=== PATIENT | male | born 1965 | race Caucasian/White ===

== ENCOUNTER 2019-05-02 17:09 | Emergency (ER) | payer BC ==
[2019-05-02] MEDS ORDERED: Ondansetron 4 MG/2 ML SDV IVPUSH ONE (17:10)
[2019-05-02] MEDS ORDERED: Sodium Chloride 0.9% 1,000 ML IV ONE (17:10)
[2019-05-02] MEDS ORDERED: Sodium Chloride 0.9% 10 ML Syringe FLUSH PRN (17:10)
[2019-05-02] MEDS ORDERED: Sodium Chloride 0.9% 2.5 ML Syringe FLUSH PRN (17:10)
--- NOTE | 2019-05-02 17:15 | EDM.PDOC ---
ED HPI GENERAL MEDICAL PROBLEM - General Chief Complaint: Abdominal Pain Stated Complaint: VOMITTING Time Seen by Provider: 05/02/19 17:09 Source of Information: Reports: Patient History Limitations: Reports: No Limitations - History of Present Illness INITIAL COMMENTS - FREE TEXT/NARRATIVE: HISTORY AND PHYSICAL: History of present illness: Patient is a 53-year-old male presenting to the emergency room with his spouse for chief complaint of vomiting. Patient states that he was seen yesterday at [facility] and had lab work done showing elevated liver function tests and was notified to stop taking his amlodipine and losartan hydrochlorothiazide. Pending hepatitis testing currently at [facility]. He states he was a former injection drug user 30 years ago. He denies alcohol use. Patient states that he has extreme itching and was notified to take ranitidine 150 mg 5 times a day. He states this helps a little bit. He has not taken Benadryl. He stated that he has generalized been not feeling well today. He was nauseated earlier and threw up a couple of times. He denies being nauseated currently. He does state that he has some blurring of vision, a current headache , and a tender stomach upon bending over. Patient denies any fever, chills, syncope or near syncope. Denies any chest pain, back pain, shortness of breath or cough. Denies any abdominal pain, nausea, diarrhea, constipation or dysuria. Has not noted any blood in urine or stool. Patient has been eating and drinking appropriately. Review of systems: As per history of present illness and below otherwise all systems reviewed and negative. Past medical history: As per history of present illness and as reviewed below otherwise noncontributory. Surgical history: As per history of present illness and as reviewed below otherwise noncontributory. Social history: See social history for further information Family history: As per history of present illness and as reviewed below otherwise noncontributory. Physical exam: General: He shouldn't is a well-nourished and well-developed 53-year-old male. Alert and orientated. Nontoxic in appearance and in no acute distress. Vital signs have been reviewed by me. HEENT: Atraumatic, normocephalic, pupils equal and reactive bilaterally, negative for conjunctival pallor, minor scleral icterus noted bilaterally, mucous membranes moist, TMs normal bilaterally, throat clear, neck supple, nontender, trachea midline. No drooling or trismus noted. No meningeal signs. No hot potato voice noted. Lungs: Clear to auscultation, breath sounds equal bilaterally, chest nontender. Heart: S1S2, regular rate and rhythm without overt murmur Abdomen: Soft, nondistended, tender to palpation in the left lower quadrant. Negative for masses or hepatosplenomegaly. Negative for costovertebral tenderness. Skin: Intact, warm, dry. No lesions or rashes noted. Extremities: Atraumatic, moves all extremities per self without difficulty or deficits, negative for cords or calf pain. Neurovascular unremarkable. Neuro: Awake, alert, oriented. Cranial nerves II through XII unremarkable. Cerebellum unremarkable. Motor and sensory unremarkable throughout. Exam nonfocal. Notes: Patient's Total Bili/AST/ALT are elevated. CT of the abdomen and pelvis shows no acute abdominal/pelvic process. Normal-appearing liver. No biliary ductal dilatation. Patient currently has no complaints and states he feels better after receiving the IV fluids. He does have a hepatitis panel pending from his primary care provider. Vital signs are stable. We'll discharge patient to home with close follow-up with his primary care. This case was reviewed with Dr Hoyos. Supportive care measures were reviewed and discussed. Voices understanding and is agreeable to plan of care. Denies any further questions or concerns at this time. Diagnostics: CBC, CMP, Lipase, UA Therapeutics: IV fluids, Zofran Prescription: Zofran Impression: Elevated transaminases Plan: 1. You need follow up on the Hepatitis Panel that you had yesterday. 2. Increase oral fluids. 3. Return to the ED as needed and as discussed Definitive disposition and diagnosis as appropriate pending reevaluation and review of above. Upper Abdomen Pain Score (Numeric/FACES): 3 - Related Data Allergies Allergy/AdvReac Type Severity Reaction Status Date / Time No Known Allergies Allergy Verified 05/02/19 17:24 Home Meds: Home Meds Diclofenac Sodium [Diclofenac Sodium ER] 100 mg PO DAILY 05/02/19 [History] Levothyroxine 25 mcg PO ACBREAKFAST 05/02/19 [History] Losartan/Hydrochlorothiazide [Losartan-HCTZ 100-12.5 MG] 1 tab DAILY 05/02/19 [ History] amLODIPine [Norvasc] 10 mg PO DAILY 05/02/19 [History] ED ROS GENERAL - Review of Systems Review Of Systems: ROS reveals no pertinent complaints other than HPI. ED EXAM, RENAL/ - Physical Exam Exam: See Below (See dictation) Course - Vital Signs Last Recorded V/S: Last Vital Signs Temp 96.6 F 05/02/19 17:19 Pulse 76 05/02/19 17:19 Resp 18 05/02/19 17:19 BP 148/99 H 05/02/19 17: Pulse Ox 95 05/02/19 17:19 - Orders/Labs/Meds Orders: Active Orders 24 hr Category Date Time Status Sodium Chloride 0.9% [Saline Flush] Med 05/02/19 17:10 Active 10 ml FLUSH ASDIRECTED PRN Sodium Chloride 0.9% [Saline Flush] Med 05/02/19 17:10 Active 2.5 ml FLUSH ASDIRECTED PRN Saline Lock Insert [OM.PC] Stat Oth 05/02/19 17:10 Ordered Medication Orders Sodium Chloride (Saline Flush) 10 ml FLUSH ASDIRECTED PRN PRN Reason: Keep Vein Open Last Admin: 05/02/19 17:33 Dose: 10 ml Sodium Chloride (Saline Flush) 2.5 ml FLUSH ASDIRECTED PRN PRN Reason: Keep Vein Open Last Admin: 05/02/19 17:33 Dose: 2.5 ml Labs: Laboratory Tests 05/02/19 05/02/19 05/02/19 Range/Units 17:29 17:29 17:29 WBC 4.72 (4.0-11.0) K/uL RBC 5.06 (4.50-5.90) M/uL Hgb 16.2 (13.0-17.0) g/dL Hct 46.1 (38.0-50.0) % MCV 91.1 (80.0-98.0) fL MCH 32.0 (27.0-32.0) pg MCHC 35.1 (31.0-37.0) g/dL RDW Std Deviation 42.8 (28.0-62.0) fl RDW Coeff of Kassidy 13 (11.0-15.0) % Plt Count 139 L (150-400) K/uL MPV 10.90 (7.40-12.00) fL Add Manual Diff YES Neutrophils % (Manual) 57 (48.0-80.0) % Lymphocytes % (Manual) 29 (16.0-40.0) % Monocytes % (Manual) 7 (0.0-15.0) % Eosinophils % (Manual) 6 (0.0-7.0) % Basophils % (Manual) 1 (0.0-1.5) % Nucleated RBC % 0.0 /100WBC Absolute Seg Neuts 2.7 (1.4-5.7) Lymphocytes # (Manual) 1.4 (0.6-2.4) Monocytes # (Manual) 0.3 (0.0-0.8) Eosinophils # (Manual) 0.3 (0.0-0.7) Basophils # (Manual) 0.0 (0.0-0.1) Nucleated RBCs # 0 K/uL Sodium 137 (136-148) mmol/L Potassium 4.1 (3.5-5.1) mmol/L Chloride 99 (98-107) mmol/L Carbon Dioxide 27.5 (21.0-32.0) mmol/L BUN 16 (7.0-18.0) mg/dL Creatinine 1.3 (0.8-1.3) mg/dL Est Cr Clr Drug Dosing 71.30 mL/min Estimated GFR (MDRD) 57.5 ml/min Glucose 109 H (74-106) mg/dL Calcium 9.5 (8.5-10.1) mg/dL Total Bilirubin 2.6 H (0.2-1.0) mg/dL AST 363 H (15-37) IU/L ALT 420 H (14-63) IU/L Alkaline Phosphatase 151 H (46-116) U/L Total Protein 8.6 H (6.4-8.2) g/dL Albumin 3.7 (3.4-5.0) g/dL Globulin 4.9 H (2.6-4.0) g/dL Albumin/Globulin Ratio 0.8 L (0.9-1.6) Lipase 302 (73-393) U/L Urine Color YELLOW Urine Appearance CLEAR Urine pH 6.0 (5.0-8.0) Ur Specific [place] 1.015 (1.001-1.035) Urine Protein NEGATIVE (NEGATIVE) mg/dL Urine Glucose (UA) NEGATIVE (NEGATIVE) mg/dL Urine Ketones NEGATIVE (NEGATIVE) mg/dL Urine Occult Blood NEGATIVE (NEGATIVE) Urine Nitrite NEGATIVE (NEGATIVE) Urine Bilirubin SMALL H (NEGATIVE) Urine Ictotest NEGATIVE Urine Urobilinogen 1.0 (<2.0) EU/dL Ur Leukocyte Esterase NEGATIVE (NEGATIVE) Meds: Medications Generic Name Dose Route Start Last Admin Trade Name Freq PRN Reason Stop Dose Admin Sodium Chloride 10 ml 05/02/19 17:10 05/02/19 17:33 Saline Flush FLUSH 10 ml ASDIRECTED PRN Administration Keep Vein Open Sodium Chloride 2.5 ml 05/02/19 17:10 05/02/19 17:33 Saline Flush FLUSH 2.5 ml ASDIRECTED PRN Administration Keep Vein Open Discontinued Medications Generic Name Dose Route Start Last Admin Trade Name Freq PRN Reason Stop Dose Admin Sodium Chloride 1,000 mls @ 999 mls/hr 05/02/19 17:10 05/02/19 17:33 Normal Saline IV 05/02/19 18:10 999 mls/hr STAT ONE Administration Iopamidol 80 ml 05/02/19 18:34 05/02/19 18:36 Isovue Multipack-370 (76%) IVPUSH 05/02/19 18:35 80 ml ONETIME STA Administration Ondansetron HCl 4 mg 05/02/19 17:10 05/02/19 17:33 Zofran IVPUSH 05/02/19 17:11 4 mg ONETIME ONE Administration Departure - Departure Time of Disposition: 19:05 Disposition: Home, Self-Care 01 Clinical Impression: Elevated transaminase level - Discharge Information Referrals: Osorio Murray MD [Primary Care Provider] - Forms: ED Department Discharge Additional Instructions: The following information is given to patients seen in the emergency department who are being discharged to home. This information is to outline your options for follow-up care. We provide all patients seen in our emergency department with a follow-up referral. The need for follow-up, as well as the timing and circumstances, are variable depending upon the specifics of your emergency department visit. If you don't have a primary care physician on staff, we will provide you with a referral. We always advise you to contact your personal physician following an emergency department visit to inform them of the circumstance of the visit and for follow-up with them and/or the need for any referrals to a consulting specialist. The emergency department will also refer you to a specialist when appropriate. This referral assures that you have the opportunity for follow-up care with a specialist. All of these measure are taken in an effort to provide you with optimal care, which includes your follow-up. Under all circumstances we always encourage you to contact your private physician who remains a resource for coordinating your care. When calling for follow-up care, please make the office aware that this follow-up is from your recent emergency room visit. If for any reason you are refused follow-up, please contact the [facility] Emergency Department at and asked to speak to the emergency department charge nurse. [facility] [address] [place] [id number] [place] [address] 1. Take Zofran as needed and as prescribed. He may use Benadryl over-the- counter along with your ranitidine for the itching. 2. Please follow-up with your primary care provider regarding your hepatitis panel results. This will direct future care and management. 3. Return to the ED as needed and as discussed. - My Orders Last 24 Hours: My Active Orders 05/02/19 17:10 Sodium Chloride 0.9% [Saline Flush] 10 ml FLUSH ASDIRECTED PRN Sodium Chloride 0.9% [Saline Flush] 2.5 ml FLUSH ASDIRECTED PRN Saline Lock Insert [OM.PC] Stat - Assessment/Plan Last 24 Hours: My Active Orders 05/02/19 17:10 Sodium Chloride 0.9% [Saline Flush] 10 ml FLUSH ASDIRECTED PRN Sodium Chloride 0.9% [Saline Flush] 2.5 ml FLUSH ASDIRECTED PRN Saline Lock Insert [OM.PC] Stat
[2019-05-02 18:01] LABS: CARBON DIOXIDE,CO2 27.5 mmol/L (21.0-32.0); POTASSIUM,K 4.1 mmol/L (3.5-5.1)
[2019-05-02] MEDS ORDERED: Iopamidol 755 MG/ML 200 ML Multipack Bottle IVPUSH STA (18:34)
--- NOTE | 2019-05-02 18:45 | CT ---
INDICATION: Elevated liver function test. TECHNIQUE: Contrast-enhanced CT of the abdomen and pelvis. 80 cc nonionic Isovue-370 administered. FINDINGS: The liver enhances uniformly without masses or biliary duct dilatation. No convincing evidence for hepatic fatty infiltration. Normal-appearing spleen, pancreas, gallbladder, and adrenal glands. Both kidneys are negative for stones, obstruction, or solid masses. Two tiny cortical cysts left kidney. Vascular calcification within a normal caliber abdominal aorta and iliac arteries. Normal inferior vena cava. There is no evidence for small or large bowel obstruction ileus. No ascites or lymphadenopathy. Small esophageal hiatal hernia. Normal urinary bladder, prostate gland, and seminal vesicles. The included skeleton is within normal limits. Mild degenerative facet arthropathy of the lower lumbar spine. IMPRESSION: 1. No acute abdominopelvic process identified. 2. Normal-appearing liver. No biliary ductal dilatation. Please note that all CT scans at this facility use dose modulation, iterative reconstruction, and/or weight-based dosing when appropriate to reduce radiation dose to as low as reasonably achievable. Dictated by Miky Burton MD @ May 02 2019 6:44PM Signed by Dr. Miky Burton @ May 02 2019 6:44PM
== END 2019-05-02 19:26 | disposition home or self-care (01) ==
LOC: MW.ED 17:09
DX: R74.0 Nonspecific elevation of levels of transaminase and lactic acid dehydrogenase [LDH] (principal); R11.2 Nausea with vomiting, unspecified
CPT/HCPCS: 36415; 74177; 80053; 81003; 83690; 85025; 96361; 96374; 99284; J2405; J7040; Q9967

== ENCOUNTER 2020-04-22 04:54 | Emergency (ER) | payer BC, OTHER ==
[2020-04-22] MEDS ORDERED: Morphine 4 MG/ML Syringe IVPUSH ONE ×2 (04:55→05:10)
[2020-04-22] MEDS ORDERED: Ondansetron 4 MG/2 ML SDV IVPUSH ONE (04:55)
[2020-04-22] MEDS ORDERED: Sodium Chloride 0.9% 2.5 ML Syringe FLUSH PRN (04:55)
[2020-04-22] MEDS ORDERED: Aspirin 81 MG Tab.Chew PO ONE (04:55)
[2020-04-22] MEDS ORDERED: Sodium Chloride 0.9% 10 ML Syringe FLUSH PRN (04:55)
[2020-04-22] MEDS ORDERED: Morphine 4 MG/ML Syringe ONE (04:57)
[2020-04-22] MEDS ORDERED: Aspirin 81 MG Tab.Chew ONE (04:57)
[2020-04-22] MEDS ORDERED: Nitroglycerin 0.4 MG Tab.SL SL ONE (04:59)
[2020-04-22] MEDS ORDERED: Nitroglycerin 2% Oint 1 GM UD Packet TOP ONE (05:00)
--- NOTE | 2020-04-22 05:03 | EDM.PDOC ---
ED HPI GENERAL MEDICAL PROBLEM - General Chief Complaint: Chest Pain Stated Complaint: CHEST PAIN Time Seen by Provider: 04/22/20 04:55 - History of Present Illness INITIAL COMMENTS - FREE TEXT/NARRATIVE: Patient is a 54-year-old male with a history of hypertension no prior cardiac disease who had coronavirus and was released from his quarantine 2 days ago who is presenting with 10 out of 10 severe crushing substernal chest pain with radiation to the neck and the left arm that woke him up from sleep 1 hour prior to arrival was associated with lightheadedness nausea and shortness of breath as well as diaphoresis symptoms are constant and severe without exacerbating or alleviating factors no prior history of angina or cardiac disease that he is aware of Left Chest Pain Score (Numeric/FACES): 10 - Related Data Allergies Allergy/AdvReac Type Severity Reaction Status Date / Time No Known Allergies Allergy Verified 05/02/19 17:24 Home Meds: Home Meds Levothyroxine 25 mcg PO ACBREAKFAST 05/02/19 [History] Losartan/Hydrochlorothiazide [Losartan-HCTZ 100-12.5 MG] 1 tab DAILY 05/02/19 [History] amLODIPine [Norvasc] 10 mg PO DAILY 05/02/19 [History] hydroCHLOROthiazide [Hydrochlorothiazide] 12.5 mg PO DAILY 04/22/20 [History] Past Medical History - Past Health History Medical/Surgical History: Denies Medical/Surgical History Cardiovascular History: Reports: Hypertension Musculoskeletal History: Reports: Arthritis Endocrine/Metabolic History: Reports: Hypothyroidism - Past Surgical History HEENT Surgical History: Reports: Tonsillectomy Social & Family History - Family History Family Medical History: Noncontributory ED ROS GENERAL - Review of Systems Review Of Systems: See Below Free Text/Narrative/Comment: General: No fever. Skin: No rash. Eyes: No vision problems. ENT: No sore throat. Neck: No neck stiffness. Respiratory: Per HPI Cardiac: Per HPI Gastrointestinal: No nausea, vomiting or abdominal pain. Urinary: No dysuria. Musculoskeletal: No myalgias/arthralgias. Neurologic: No headache. ED EXAM, GENERAL - Physical Exam Exam: See Below Free Text/Narrative:: General Appearance: Uncomfortable mildly diaphoretic Skin: No rash HEENT: Normocephalic/atraumatic, sclera anicteric, mucous membranes moist Neck: Normal range of motion Chest and Lungs: Bilateral breath sounds, clear to auscultation Cardiovascular: Regular rate and rhythm, no murmur Abdomen: Soft, non-tender Back: Normal Musculoskeletal: No edema or tenderness Neurologic: Awake, alert, no obvious deficits, moving all extremities Psychiatric: Appropriate, cooperative EKG INTERPRETATION EKG Interpretation Comments: EKG #1 obtained at 0453 demonstrates sinus rhythm with a rate of [address] elevation of 1 mm in aVR there is no other ST elevation there is mild ST depression of 1 mm in V4 V5 and V6 as well as will subtle depression in leads I and II that is consistent with ischemia but does not meet STEMI criteria Course - Vital Signs Last Recorded V/S: Last Vital Signs Temp 97.6 F 04/22/20 04:56 Pulse 78 04/22/20 04:56 Resp 20 04/22/20 04:56 BP 150/89 H 04/22/20 05:15 Pulse Ox 96 04/22/20 04:56 - Orders/Labs/Meds Orders: Active Orders 24 hr Category Date Time Status COMPREHENSIVE METABOLIC PN,CMP [CHEM] Stat Lab 04/22/20 05:02 Received MAGNESIUM [CHEM] Stat Lab 04/22/20 05:02 Received TROPONIN I [CHEM] Stat Lab 04/22/20 05:02 Received Nitroglycerin [Nitrostat] Med 04/22/20 05:12 Active 0.4 mg SL Q5M PRN Sodium Chloride 0.9% [Saline Flush] Med 04/22/20 04:55 Active 10 ml FLUSH ASDIRECTED PRN Sodium Chloride 0.9% [Saline Flush] Med 04/22/20 04:55 Active 2.5 ml FLUSH ASDIRECTED PRN Saline Lock Insert [OM.PC] Stat Oth 04/22/20 04:55 Ordered Medication Orders Nitroglycerin (Nitrostat) 0.4 mg SL Q5M PRN PRN Reason: Chest Pain Last Admin: 04/22/20 05:15 Dose: 0.4 mg Documented by: [id number] Admin: 04/22/20 05:10 Dose: 0.4 mg Documented by: [id number] Sodium Chloride (Saline Flush) 10 ml FLUSH ASDIRECTED PRN PRN Reason: Keep Vein Open Sodium Chloride (Saline Flush) 2.5 ml FLUSH ASDIRECTED PRN PRN Reason: Keep Vein Open Labs: Laboratory Tests 04/22/20 Range/Units 05:02 WBC 6.50 (4.0-11.0) K/uL RBC 5.18 (4.50-5.90) M/uL Hgb 15.5 (13.0-17.0) g/dL Hct 46.5 (38.0-50.0) % MCV 89.8 (80.0-98.0) fL MCH 29.9 (27.0-32.0) pg MCHC 33.3 (31.0-37.0) g/dL RDW Std Deviation 41.7 (28.0-62.0) fl RDW Coeff of Kassidy 13 (11.0-15.0) % Plt Count 172 (150-400) K/uL MPV 10.20 (7.40-12.00) fL Neut % (Auto) 39.0 L (48.0-80.0) % Lymph % (Auto) 42.0 H (16.0-40.0) % [place] % (Auto) 15.8 H (0.0-15.0) % Eos % (Auto) 2.9 (0.0-7.0) % Baso % (Auto) 0.3 (0.0-1.5) % Neut # (Auto) 2.5 (1.4-5.7) K/uL Lymph # (Auto) 2.7 H (0.6-2.4) K/uL [place] # (Auto) 1.0 H (0.0-0.8) K/uL Eos # (Auto) 0.2 (0.0-0.7) K/uL Baso # (Auto) 0.0 (0.0-0.1) K/uL Nucleated RBC % 0.0 /100WBC Nucleated RBCs # 0 K/uL Meds: Medications Generic Name Dose Route Start Last Admin Trade Name Freq PRN Reason Stop Dose Admin Nitroglycerin 0.4 mg 04/22/20 05:12 04/22/20 05:15 Nitrostat SL 0.4 mg Q5M PRN Administration Chest Pain Sodium Chloride 10 ml 04/22/20 04:55 Saline Flush FLUSH ASDIRECTED PRN Keep Vein Open Sodium Chloride 2.5 ml 04/22/20 04:55 Saline Flush FLUSH ASDIRECTED PRN Keep Vein Open Discontinued Medications Generic Name Dose Route Start Last Admin Trade Name Shantanuq PRN Reason Stop Dose Admin Aspirin 324 mg 04/22/20 04:55 04/22/20 05:07 Aspirin PO 04/22/20 04:56 324 mg ONETIME ONE Administration Aspirin Confirm 04/22/20 04:57 04/22/20 05:07 Aspirin Administered 04/22/20 04:58 Not Given Dose 324 mg .ROUTE .STK-MED ONE Morphine Sulfate 4 mg 04/22/20 04:55 04/22/20 05:06 Morphine IVPUSH 04/22/20 04:56 4 mg ONETIME ONE Administration Morphine Sulfate Confirm 04/22/20 04:57 04/22/20 05:07 Morphine Administered 04/22/20 04:58 Not Given Dose 4 mg .ROUTE .STK-MED ONE Morphine Sulfate 4 mg 04/22/20 05:10 04/22/20 05:14 Morphine IVPUSH 04/22/20 05:11 4 mg ONETIME ONE Administration Morphine Sulfate 8 mg 04/22/20 05:27 Morphine IVPUSH 04/22/20 05:28 ONETIME ONE Nitroglycerin 0.4 mg 04/22/20 04:59 04/22/20 05:05 Nitrostat SL 04/22/20 05:00 0.4 mg ONETIME ONE Administration Nitroglycerin 1 gm 04/22/20 05:00 04/22/20 05:06 Nitro-Bid 2% TOP 04/22/20 05:01 1 gm ONETIME ONE Administration Ondansetron HCl 4 mg 04/22/20 04:55 04/22/20 05:06 Zofran IVPUSH 04/22/20 04:56 4 mg ONETIME ONE Administration Tenecteplase 50 mg 04/22/20 05:37 Tnkase IV 04/22/20 05:38 NOW STA Protocol Tenecteplase Confirm 04/22/20 05:40 Tnkase Administered 04/22/20 05:41 Dose 50 mg .ROUTE .STK-MED ONE Departure - Departure Time of Disposition: 05:56 Disposition: DC/Tfer to Acute Hospital 02 Condition: Fair Clinical Impression: STEMI (ST elevation myocardial infarction) - Discharge Information *PRESCRIPTION DRUG MONITORING PROGRAM REVIEWED*: Not Applicable *COPY OF PRESCRIPTION DRUG MONITORING REPORT IN PATIENT VERONICA: Not Applicable Referrals: Osorio Murray MD [Primary Care Provider] - Forms: ED Department Discharge Sepsis Event Note (ED) - Evaluation Sepsis Screening Result: No Definite Risk - Focused Exam Vital Signs: Vital Signs Temp Pulse Resp BP BP Pulse Ox 04/22/20 05:15 150/89 H 04/22/20 05:10 131/102 H 04/22/20 05:05 170/94 H 04/22/20 04:56 97.6 F 78 20 171/120 H 96 - My Orders Last 24 Hours: My Active Orders 04/22/20 04:55 Sodium Chloride 0.9% [Saline Flush] 10 ml FLUSH ASDIRECTED PRN Sodium Chloride 0.9% [Saline Flush] 2.5 ml FLUSH ASDIRECTED PRN Saline Lock Insert [OM.PC] Stat 04/22/20 05:02 COMPREHENSIVE METABOLIC PN,CMP [CHEM] Stat MAGNESIUM [CHEM] Stat TROPONIN I [CHEM] Stat 04/22/20 05:12 Nitroglycerin [Nitrostat] 0.4 mg SL Q5M PRN - Assessment/Plan Last 24 Hours: My Active Orders 04/22/20 04:55 Sodium Chloride 0.9% [Saline Flush] 10 ml FLUSH ASDIRECTED PRN Sodium Chloride 0.9% [Saline Flush] 2.5 ml FLUSH ASDIRECTED PRN Saline Lock Insert [OM.PC] Stat 04/22/20 05:02 COMPREHENSIVE METABOLIC PN,CMP [CHEM] Stat MAGNESIUM [CHEM] Stat TROPONIN I [CHEM] Stat 04/22/20 05:12 Nitroglycerin [Nitrostat] 0.4 mg SL Q5M PRN Assessment:: 54-year-old male presenting with signs and symptoms concerning for cardiac chest pain and ACS initial EKG does not meet STEMI criteria morphine Zofran aspirin and nitro ordered. CBC CMP troponin magnesium and chest x-ray are pending. PE considered but no tachycardia or hypoxia or pleuritic nature to the pain aortic dissection considered but the patient denies tearing pain he denies any pain in his back. EKG #2 at 0530 demonstrates inferior STEMI. Pt's BP remains elevated, nitro paste removed. Tnkase ordered and discussing with [place]. Patient's pain remains unchanged s/p an additional 8 mg IV morphine. ETA for [facility] is > 2 hours. Nurse attempting to make alternative arrangements. I pushed thrombolytics at 0547 Patient discussed with the MD in [place] and patient accepted for transfer. Due to lack of local helicopter fixed wing is in route
[2020-04-22] MEDS: Nitroglycerin 0.4 MG Tab.SL SL PRN ×2 (05:10→05:15)
[2020-04-22] MEDS ORDERED: Morphine 10 MG/ML Syringe IVPUSH ONE (05:27)
--- NOTE | 2020-04-22 05:27 | CR ---
INDICATION: Chest pain TECHNIQUE: Chest radiograph 1 view COMPARISON: None FINDINGS: Mediastinum: The mediastinum is normal in appearance. The heart silhouette is normal in size and morphology. Lung: Both lungs are unremarkable in appearance. No sign of pleural effusion seen. No pneumothorax is identified. Bone and Soft tissue: Unremarkable for age. IMPRESSION: 1. No acute cardiopulmonary disease is seen. Dictated by: Chance Shelton MD @ 04/22/2020 05:26:25 (Electronically Signed)
[2020-04-22] MEDS ORDERED: Tenecteplase 50 MG Kit IV STA (05:37)
[2020-04-22] MEDS ORDERED: Tenecteplase 50 MG Kit ONE (05:40)
[2020-04-22 05:57] LABS: BLOOD UREA NITROGEN,BUN 18 mg/dL (7.0-18.0); CHLORIDE,CL 105 mmol/L (98-107); GLUCOSE RANDOM 126 mg/dL (74-106); POTASSIUM,K 3.5 mmol/L (3.5-5.1); SODIUM,NA 142 mmol/L (136-148)
== END 2020-04-22 06:48 ==
LOC: MW.ED 04:54
DX: I21.3 ST elevation (STEMI) myocardial infarction of unspecified site (principal); I10 Essential (primary) hypertension; E03.9 Hypothyroidism, unspecified; Z79.899 Other long term (current) drug therapy
CPT/HCPCS: 36415; 71045; 80053; 83735; 84484; 85025; 96374; 96375; 99285; A9270; J2270; J2405; J3101; 99284